=== PATIENT | female | born 1965 | race Caucasian/White ===

== ENCOUNTER 2019-08-25 09:40 | Outpatient (CLI) | payer OTHER, SELFPAY ==
[2019-08-25 10:04] LABS: Basophils % 0.6 %; Eosinophils # 0.3 10^3/uL (0.0-0.8); Eosinophils % 4.2 %; Hemoglobin 14.6 g/dL (11.5-15.3); Lymphocytes # 1.7 10^3/uL (0.8-4.8); Lymphocytes % 24.5 %; Mean Corpuscular HGB Conc 32.4 g/dL (30.0-36.0); Mean Corpuscular Hemoglobin 31.3 pg (28.0-34.0); Mean Corpuscular Volume 96.4 fL (81-99); Mean Platelet Volume 10.6 fL (7.4-10.4); Monocytes # 0.4 10^3/uL (0.2-0.9); Monocytes % 5.1 %; Neutrophils # 4.6 10^3/uL (1.8-7.7); Neutrophils % 65.2 %; Nucleated Red Blood Cells % 0 %; Platelet Count 213 10^3/cmm (130-400); Red Blood Count 4.67 10^6/uL (4.1-5.3); Red Cell Distribution Width 13.3 % (12.1-15.1); White Blood Count 7.1 10^3/uL (4.0-10.0)
[2019-08-29 17:20] LABS: Bermuda Class 0/1; Bermuda Grass (G2) Ige 0.17 kU/L; Cat Dander (E1) Ige 0.16 kU/L; Cat Dander Class 0/1; Common Ragweed (Short) (W1) Ig 0.18 kU/L; Dog Dander (E5) Ige 0.44 kU/L; Dog Dander Class 1; Elm (T8) Ige 0.15 kU/L; Elm Class 0/1; English Plantain (W9) Ige 0.18 kU/L; English Plantain Class 0/1; Immunoglobulin E 83 kU/L (<OR=114); Immunoglobulin E 94 kU/L (<OR=114); Johnson Grass (G10) Ige 0.17 kU/L; Johnson Grass Cl 0/1; June Grass Class 0/1; June Grass(Kentucky Blue) (G8) 0.16 kU/L; Lamb'S Quarters (Goose Foot) 0.15 kU/L; Lamb'S Quarters Class 0/1; Maple (Box Elder) (T1) Ige 0.15 kU/L; Maple Class 0/1; Meadow Fescue (G4) Ige 0.14 kU/L; Meadow Fescue Class 0/1; Oak (T7) Ige 0.19 kU/L; Oak Class 0/1; Orchard Grass (Cocksfoot) (G3) 0.16 kU/L; Perennial Rye Grass (G5) Ige 0.14 kU/L; Perennial Rye Grass Class 0/1; Ragweeed Class 0/1; Rough Marsh Elder (W16) Ige 0.22 kU/L; Rough Marsh Elder Class 0/1; Sweet Vernal Class 0/1; Timothy Grass (G6) Ige 0.15 kU/L; Timothy Grass Class 0/1
[2019-08-30 18:20] LABS: Alternaria Alternata (M6) Ige 2.18 kU/L; Alternaria Class 2; D. Farinae Class 0; Dermatophagoides Class 0/1; Dermatophagoides Farinae (D2) <0.10 kU/L; Dermatophagoides Pteronyssinus 0.12 kU/L; House Dust (Greer) (H1) Ige 0.14 kU/L; House Dust (Hollister- Stier) 0.18 kU/L; House Dust Class 0/1; Mucor Racemosus Class 0; Penicillium Class 0; Penicillium Notatum (M1) Ige <0.10 kU/L
[2019-08-31 20:21] LABS: Aspergillus Fumigatus, Igg Ab, 4.5 mg/L (<=102)
== END 2019-08-25 09:41 | disposition home or self-care (01) ==
LOC: LAB 09:44
PROVIDERS: PCP Family Medicine; Visit Provider Internal Medicine Critical Care Medicine
DX: J45.909 Unspecified asthma, uncomplicated (principal); R06.02 Shortness of breath
CPT/HCPCS: 36415; 82785; 85025; 86003

== ENCOUNTER 2019-09-09 11:05 | Outpatient (CLI) | payer OTHER, SELFPAY ==
--- NOTE | 2019-09-09 13:19 | PFTS_ITS ---
Date of Study:09/09/19 Date of Dictation: MECHANICS: Forced vital capacity (FVC) is reduced. Forced expiratory volume in one second (FEV1) is reduced. FEV1/FVC is normal. FLOW VOLUME LOOP: Reduced flow at all lung volumes. LUNG VOLUMES: Total lung capacity (TLC) is reduced. Residual volume (RV) is normal. DIFFUSING CAPACITY FOR CARBON MONOXIDE: Moderately reduced. Normalizes when corrected for alveolar volume. INTERPRETATION: The pulmonary function tests are consistent with mild restriction. Total lung capacity is mildly reduced. Gas exchange (DLCO) is moderately reduced but corrects to normal when corrected for alveolar volume. MTDD
== END 2019-09-09 11:06 | disposition home or self-care (01) ==
LOC: RT 11:06
PROVIDERS: PCP Family Medicine; Visit Provider Internal Medicine Critical Care Medicine
DX: J45.909 Unspecified asthma, uncomplicated (principal)
CPT/HCPCS: 94010; 94726; 94729

== ENCOUNTER 2019-09-27 12:00 | Outpatient (CLI) | payer OTHER, SELFPAY | END 2019-09-27 12:01 | disposition home or self-care (01) | LOC: SLEEP 09-28 12:11 | PROVIDERS: PCP Family Medicine; Visit Provider Internal Medicine Critical Care Medicine | DX: G47.10 Hypersomnia, unspecified (principal) | CPT/HCPCS: G0399 ==